=== PATIENT | male | born 1950 | race Caucasian/White ===

== ENCOUNTER 2018-11-12 02:42 | Emergency (ER) | payer OTHER ==
[2018-11-12] MEDS ORDERED: DEXAMETHASONE 10 MG/ML VIAL IVP ONE (03:12)
[2018-11-12] MEDS ORDERED: FAMOTIDINE 20 MG/2 ML SDV IVP ONE (03:12)
--- NOTE | 2018-11-12 03:25 | EDPHY ---
H & P Stated Complaint: Swollen upper and lower R lips-took Atorvastatin. Time Seen by Provider: 11/12/18 02:46 HPI/ROS: CC: right upper lip and cheek swelling HPI: This 68-year-old male with past medical history including hypertension and hypercholesterolemia presents to the emergency department today complaining of right sided upper lip swelling that woke him up at 2:00 a.m.. On October 06 he went to a [facility] for chest discomfort and was diagnosed with atypical chest pain after a coronary CT, SPECT myocardial perfusion study and an echocardiogram. When they discharged him they started him on low-dose lisinopril 2.5 mg for his elevated blood pressure. He followed up with his primary care provider approximately two and half weeks ago who continued the lisinopril and also started him on atorvastatin 40 mg. He takes the lisinopril in the morning and the atorvastatin in the evening. He followed this routine yesterday and woke up at 2:00 a.m. with right-sided upper lip swelling that feels like it is also extending to his right cheek. He is not having any difficulty swallowing. He does not feel short of breath. He has no rash, pruritus, abdominal pain, or diarrhea. He has not had any previous episodes of this sort. He has not been ill recently. REVIEW OF SYSTEMS: Constitutional: No fever, no chills. Eyes: No discharge. ENT: No sore throat. Respiratory: No cough, no shortness of breath. Cardiac: No chest pain, no palpitations. Gastrointestinal: No abdominal pain, no vomiting. Genitourinary: No dysuria. Musculoskeletal: No back pain. Skin: No rashes. Neurological: No headache. Source: Patient, Family () Exam Limitations: No limitations - Personal History Current Tetanus/Diphtheria Vaccine: Unsure Current Tetanus Diphtheria and Acellular Pertussis (TDAP): Unsure - Medical/Surgical History PMH: Past medical history includes hypertension, hypercholesterolemia, urinary tract infection. Past surgical history includes orthopedic surgeries of the upper extremity. Family history includes hypertension, coronary artery disease for both his mother and father, as well as late onset diabetes mellitus (father). NKDA Medications include atorvastatin 40mg daily; lisinopril 2.5mg daily. Primary care provider is Dr. Jose R Mcqueen. Hx Asthma: No Hx Chronic Respiratory Disease: No Hx Diabetes: No Hx Cardiac Disease: No Hx Renal Disease: No Hx Cirrhosis: No Hx Alcoholism: No Hx HIV/AIDS: No Hx Splenectomy or Spleen Trauma: No Other PMH: Fx elbows and pelvis-falls from ladder, high cholesterol, HTN - Social History Smoking Status: Former smoker Additional Social History: . Quit using tobacco products over 50 years ago, drinks 2-3 beers per month, denies marijuana or other recreational drug use. - Physical Exam Exam: General Appearance: Alert, mild distress. Eyes: Pupils equal and round no pallor or injection. ENT, Mouth: Mucous membranes are moist. The right side of the patient's upper lip is mild to moderately swollen. No tongue swelling. The uvula perhaps seems mildly boggy. Respiratory: There are no retractions, lungs are clear to auscultation. Cardiovascular: Regular rate and rhythm. Gastrointestinal: Abdomen is round, soft and nontender, bowel sounds normal. Neurological: Awake and alert, sensory and motor exams grossly normal. Skin: Warm and dry, no rashes. Musculoskeletal: Neck is supple, nontender. Extremities are symmetrical, full range of motion. No pretibial edema. Psychiatric: Patient is oriented X 3, there is no agitation. DIFFERENTIAL DIAGNOSIS: After history and physical exam differential diagnosis was considered for but not limited to and in no particular order: ELENA-I induced angioedema, angioneurotic edema reaction to atorvastatin, allergic reaction, hereditary angioedema. Constitutional: Initial Vital Signs Temperature (C) 98.2 F 11/12/18 02:50 Heart Rate 70 11/12/18 02:50 Respiratory Rate 18 11/12/18 02:50 Blood Pressure 142/78 H 11/12/18 02:50 O2 Sat (%) 92 11/12/18 02:50 O2 Delivery Mode Room Air Allergies/Adverse Reactions: No Known Allergies Allergy (Verified 11/12/18 02:45) Home Medications: Medication Instructions Recorded Atorvastatin Calcium 11/12/18 B Complx/C/Folic/Zinc/Copper/E 11/12/18 Cholecalciferol Vit D3 11/12/18 Co Q-10 11/12/18 Lisinopril 11/12/18 Magnesium 11/12/18 Megared 11/12/18 Medical Decision Making ED Course/Re-evaluation: The patient was seen and examined. Vital signs and prior records ([facility] and [facility]) reviewed. The patient feels like the swelling is not getting worse. An IV was placed and he was given Decadron 10 mg IV push, Benadryl 25 mg IV push , and Pepcid 20 mg IV push and the patient is aware that for ELENA-inhibitor induced angioedema these medications may have no efficacy. He will be monitored closely for the next couple of hours. 0400 No increase in lip or face swelling. No sign of airway compromise. 0510 Lip and cheek swelling markedly decreased. No sign of airway compromise. Will discharge home. Patient and understand they are to return to the ER immediately if any return of swelling, difficulty swallowing or breathing, abdominal pain, diarrhea or any other concerns. Mr. Zhang will discontinue the lisinopril and atorvastatin and follow up with his primary care provider on Wednesday (11/14). 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 Call Dr. Mcqueen first thing Wednesday morning for follow up. He will most likely prescribe you a different medication for your blood pressure. If the swelling starts to progress or if other symptoms present (abdominal pain , diarrhea, etc), return to the ER immediately. Referrals: Jose R Mcqueen MD [Medical Doctor] - As per Instructions
[2018-11-12] MEDS ORDERED: NS 1,000 ML IV ONE (05:27)
[2018-11-12 06:28] VITALS: BP 108/67
== END 2018-11-12 06:20 | disposition home or self-care (01) ==
LOC: CED 02:42
DX: M79.89 Other specified soft tissue disorders (principal); T78.3XXA Angioneurotic edema, initial encounter; E86.9 Volume depletion, unspecified; I10 Essential (primary) hypertension; E78.00 Pure hypercholesterolemia, unspecified; Z79.899 Other long term (current) drug therapy
CPT/HCPCS: 96361-ER; 96374-ER; 96375-ER; 99284-ER; J1100; J1200